=== PATIENT | male | born 1995 | race Caucasian/White ===

== ENCOUNTER 2016-12-10 16:16 | Emergency (ER) | payer SELFPAY ==
[~2016-12-10] VITALS: Ht 167.6 cm; Wt 68.5 kg
[2016-12-10 17:31] VITALS: BP 148/81
== END 2016-12-10 17:31 | disposition home or self-care (01) ==
LOC: ED 16:16
DX: F41.9 Anxiety disorder, unspecified (principal)

== ENCOUNTER 2019-08-07 02:54 | Emergency (ER) | payer OTHER ==
[~2019-08-07] VITALS: Ht 172.7 cm; Wt 76.4 kg
[2019-08-07 02:59] VITALS: Ht 172.7 cm; Wt 76.4 kg
[2019-08-07 04:56] VITALS: BP 136/62
== END 2019-08-07 04:56 | disposition home or self-care (01) ==
LOC: ED 02:54
DX: M94.0 Chondrocostal junction syndrome [Tietze] (principal)